=== PATIENT | female | born 2000 | race Caucasian/White ===

== ENCOUNTER → 2020-10-27 12:03 | Outpatient (CLI) | payer OTHER, SELFPAY ==
[2020-10-29 20:12] LABS: AFP, Serum 21.6 ng/mL (.); Calc Gestational Age EDD (.); Estriol, Free 1.02 ng/mL (.); Inhibin A, Dimeric 126.07 pg/mL (.); Inhibin A, MoM 0.68 (.); Maternal Ethnicity Caucasian (.); Maternal Weight 119 lbs (.); Number of Fetuses No (.); OSBR Risk 1 IN 10000 (.); Results Report (.); Test Results *Screen Negative* (.); hCG, MoM 1.01 (.); hCG, Serum 47782 mIU/mL (.)
== END ==
PROVIDERS: Referring Provider Family Medicine; Visit Provider Family Medicine
DX: Z34.90 Encounter for supervision of normal pregnancy, unspecified, unspecified trimester (principal); Z3A.16 16 weeks gestation of pregnancy
CPT/HCPCS: 36415; 82105; 82677; 84702; 86336

== ENCOUNTER → 2020-11-17 09:48 | Outpatient (CLI) | payer OTHER, SELFPAY ==
--- NOTE | 2020-11-17 09:49 | DI.US.S_ITS ---
PROCEDURE: US OB >= 14 WEEKS FETUS INDICATIONS: ANATOMY SCREENING OUTSIDE/PRIOR DATING DATA: Last menstrual period (LMP): 07/06/20. LMP-based estimated date of delivery (PRINCE): 04/12/21 First dating scan (date and location): 11/17/20 Estimated date of delivery (PRINCE) from first dating scan: 04/14/21 TECHNIQUE: Real-time scanning was performed of the fetus, with image documentation and biometric measurements. Endovaginal scanning: Not needed COMPARISON: None. FINDINGS: General: A single living intrauterine gestation is present. Presentation: Variable between breech and cephalic during the course of the study. Placenta: Placental position is anterior , without previa. Amniotic fluid index: 14.4 cm, normal range is 5-24 cm. heart rate: 145 beats per minute. Maternal cervical canal: 3.6 cm long. Normal lower limit is 2.5 cm. biometrics: Biparietal diameter: 4.1 cm, 18 weeks 2 days Head circumference: 15.9 cm, 18 weeks 5 days Abdominal circumference: 13.7 cm, 19 weeks 1 day Femur length: 3.0 cm, 19 weeks 2 days Estimated gestational age from initial scan: Not applicable Composite gestational age from present scan: 18 weeks 6 days Estimated weight and percentile: 275 g, 94th percentile Measurement variability for biometric dating: +/- 7 days from 14 weeks to 15 weeks 6 days gestation, +/- 10 days from 16 weeks to 21 weeks 6 days gestation, +/- 2 weeks from 22 weeks to 27 weeks 6 days gestation, +/- 3 weeks for 28 weeks gestation or later. weight reference: 4500 g or EFW >90/95% is considered macrosomia or large for gestational age. EFW <10% is small for gestational age. EFW 5% or less is considered intra-uterine growth restriction. Anatomic survey: Neuro: Ventricles are non-dilated at less than 10 mm. Cisterna magna is normal at 3-11 mm. Cerebellum is normal in size and morphology. Nuchal skin fold: Normal at less than 6 mm between 14-21 weeks gestational age. Face: Nose and lips, facial profile are normal. Spine: No evidence for spina bifida. Heart: 4-chambered heart is present, with normal ventricular outflow tracts. Diaphragm: Diaphragm is intact. Stomach: Left-sided stomach is present. Kidneys: No hydronephrosis. Normal is less than 5 mm in 2nd trimester, less than 7 mm in 3rd trimester. Cord: 3-vessel cord has orthotopic insertion. Bladder: Normal in size. Extremities: All 4 extremities identified. IMPRESSION: Appropriate interval growth from LMP, no anomaly seen. The delivery date is projected to be centered on 04/14/21. Over the course of this examination presentation varied from breech to vertex. Dictated by: Good Malcolm M.D. on 11/17/2020 at 14:41 Approved by: Good Malcolm M.D. on 11/17/2020 at 14:45
== END ==
PROVIDERS: Referring Provider Family Medicine; Visit Provider Family Medicine
DX: Z3A.18 18 weeks gestation of pregnancy; Z36.89 Encounter for other specified antenatal screening
CPT/HCPCS: 36415; 76811; 86850; 86900; 86901

== ENCOUNTER → 2021-01-15 10:35 | Outpatient (CLI) | payer OTHER, SELFPAY ==
[2021-01-15 11:58] LABS: Add Manual Diff / Slide Review NO; Basophils Absolute Auto 0 /uL (0-100); Basophils Percent Auto 0.3 % (0-2); Eosinophils Absolute Auto 100 /uL (0-450); Eosinophils Percent Auto 0.8 % (2-4); Hematocrit 31.8 % (36-46); Lymphocytes Absolute Auto 1500 /uL (1100-4500); Lymphocytes Percent Auto 15.5 % (25-40); Mean Corpuscular HGB Conc 34.8 % (30-36); Mean Corpuscular Hemoglobin 31.7 PG (26-34); Mean Corpuscular Volume 91.2 fL (80-100); Monocytes Absolute Auto 700 /uL (0-900); Monocytes Percent Auto 7.5 % (3-14); Neutrophils Absolute Auto 7300 /uL (1500-7000); Neutrophils Percent Auto 75.9 % (50-75); Platelet Count 237 X10^3/uL (150-400); Red Blood Cell Count 3.48 X10^6/uL (4.0-5.2); Red Cell Distribution Width 12.2 % (11.6-14.8); White Blood Cell Count 9.7 X10^3/uL (4.5-11.0)
[2021-01-15 12:21] LABS: GTT (PREG) 1 Hour PP 50gm Dose 109 mg/dL (76-139)
== END ==
PROVIDERS: Referring Provider Family Medicine; Visit Provider Family Medicine
DX: Z34.90 Encounter for supervision of normal pregnancy, unspecified, unspecified trimester (principal)
CPT/HCPCS: 36415; 82950; 85025

== ENCOUNTER → 2021-03-17 15:06 | Outpatient (CLI) | payer OTHER, SELFPAY ==
[2021-03-18 11:30] LABS: Strep Grp B PCR NEG for Grp B Strep
== END ==
PROVIDERS: Visit Provider Family Medicine
DX: Z34.03 Encounter for supervision of normal first pregnancy, third trimester (principal); Z3A.36 36 weeks gestation of pregnancy
CPT/HCPCS: 87653

== ENCOUNTER 2021-04-11 20:00 | Outpatient (CLI) | payer OTHER, SELFPAY ==
--- NOTE | 2021-04-11 21:12 | P.TNLD_ITS ---
Visit Information Visit Information Date of evaluation: 04/11/21 Primary OB Provider: Ailyn Castro On-call OB Provider: Lin Allen Reason for Evaluation: Yes rupture of membranes Comments/Additional reasons for admission: 20-year-old at 39 weeks and 6 days gestation with concern for rupture of membranes prior to arrival. She has not had ongoing leaking of fluid but is concerned about decreased movement as well. Denies painful contractions or bleeding. Vital Signs Vital Signs: Temperature 36.4? blood pressure 117/66 heart rate 82 PFSH Medical History Allergies (~2005) Anxiety (~2013) Asthma (~2005) Chronic eczema (~1999) Constipation (~2016) Depression (~2013) Electrocution (~2017) Fracture of forearm (~1999) Pneumonia (~2005) Seasonal allergies (~2005) Family History Mother Anemia Hypothyroid Hx of cholecystectomy Father Diverticulitis large intestine Grandmother Hyperlipidemia Grandfather Myocardial infarction Hypertension Breathing problem Grandmother Diabetes mellitus Grandfather Hypertension Hyperlipidemia Hx of CABG Sister Depression Anxiety Pre-eclampsia Gestational diabetes mellitus (GDM) affecting Polyhydramnios affecting delivery delivered Social History marital status: household members: spouse lives independently: Yes caregiver/support person: No housing: house pets and animals: Yes (1 dog, 1 cat: safe, aware of precautions. 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 ) Tobacco: How many years used: 2 quit status: has quit before second hand exposure: No ( still smokes but not in home or car. ) alcohol intake: former (Stopped a month before trying to conceive: maybe twice a month with friends. ) substance use type: marijuana (Formerly: stopped 1 month before trying to conceive.) during the past year weight has: remained stable well-balanced diet: daily or most days daily servings fruits/ve-4 caffeine: Yes (1 energy drink/daily. ) eating out: rarely or never Type(s) of exercise: walking frequency: 3-4 times per week duration: < 15 minutes/day Evaluation Evaluation Baseline heart rate: 120 Variability: Moderate (11-25) monitor accelerations: Present Monitor Decelerations: Absent Contraction Frequency (minutes): 8 Category of Tracing: Reactive Non-invasive Membranes Rupture Test: negative Diagnosis, Plan/Disposition Final Diagnosis (1) 39 weeks gestation of : Status: Acute Plan/Disposition Plan: NST reactive. AmniSure negative. Patient was katey regularly on the monitor however denied pain. She was reassured that she was not ruptured and was feeling her may be move well in the center. She will follow-up with Dr. Castro in clinic tomorrow. OB Disposition: home
== END 2021-04-11 21:34 | disposition home or self-care (01) ==
LOC: OB 04-13 07:45
PROVIDERS: Referring Provider Family Medicine; Visit Provider Family Medicine
DX: Z03.71 Encounter for suspected problem with amniotic cavity and membrane ruled out (principal); O36.8130 Decreased fetal movements, third trimester, not applicable or unspecified; Z3A.39 39 weeks gestation of pregnancy
CPT/HCPCS: 59025; 59050; 84112; G0378; G0379

== ENCOUNTER 2021-04-16 08:07 | Observation (INO) | payer OTHER, SELFPAY | END 2021-04-16 09:15 | disposition home or self-care (01) | PROVIDERS: Admitting Provider Obstetrics & Gynecology; PCP Family Medicine; Referring Provider Obstetrics & Gynecology; Visit Provider Obstetrics & Gynecology | DX: O48.0 Post-term pregnancy (principal); Z3A.40 40 weeks gestation of pregnancy | CPT/HCPCS: 59025; G0378; G0379 ==

== ENCOUNTER 2021-04-16 15:38 | Observation (INO) | payer OTHER, SELFPAY ==
[2021-04-16] MEDS: hydrOXYzine 50 MG/ML INJ IM (16:33)
[2021-04-16] MEDS: MORPHINE 10 MG/ML INJ IM (16:34)
== END 2021-04-16 19:41 | disposition home or self-care (01) ==
PROVIDERS: Admitting Provider Family Medicine; PCP Family Medicine; Referring Provider Family Medicine; Visit Provider Family Medicine
DX: O48.0 Post-term pregnancy (principal); Z3A.40 40 weeks gestation of pregnancy
CPT/HCPCS: 59025; G0378; G0379; J2270; J3410

== ENCOUNTER 2021-04-17 05:36 | Inpatient (IN) | payer OTHER, SELFPAY ==
[2021-04-17 06:20] LABS: Add Manual Diff / Slide Review NO; Basophils Absolute Auto 0 /uL (0-100); Basophils Percent Auto 0.3 % (0-2); Eosinophils Absolute Auto 0 /uL (0-450); Eosinophils Percent Auto 0.3 % (2-4); Hemoglobin 12.3 g/dL (12.0-16.0); Lymphocytes Absolute Auto 1500 /uL (1100-4500); Lymphocytes Percent Auto 13.3 % (25-40); Mean Corpuscular Hemoglobin 30.2 PG (26-34); Monocytes Absolute Auto 700 /uL (0-900); Monocytes Percent Auto 6.3 % (3-14); Neutrophils Absolute Auto 8900 /uL (1500-7000); Neutrophils Percent Auto 79.8 % (50-75); Platelet Count 182 X10^3/uL (150-400); Red Blood Cell Count 4.05 X10^6/uL (4.0-5.2); Red Cell Distribution Width 13.1 % (11.6-14.8); White Blood Cell Count 11.1 X10^3/uL (4.5-11.0)
[2021-04-17 06:26] VITALS: BP 121/77
[2021-04-17 06:51] LABS: COVID19 - ADMIT (NP swab/PCR) Negative (Negative)
[2021-04-17] MEDS: CALCIUM CARBONATE 500 MG TAB 1000 MG PO (07:15)
--- NOTE | 2021-04-17 08:14 | P.HPOB_ITS ---
OB HPI Date/Time Date of admission: 04/17/21 Date Patient Seen: 04/17/21 Time Patient Seen: 08:14 History of Present Condition Chief complaint: contractions Date of Last Menstrual Period: 07/06/20 PRINCE Calculator Estimated Delivery Date Method Current WG Current Estimate 04/12/21 Manual 40w 5d Final PRINCE - GI Other Estimates 04/12/21 LMP (Certain) 40w 5d 04/13/21 Ultrasound #1 40w 4d Estimated Gestational Age (weeks): 40 5/7 : 1 Para: 0 Narrative: Primip seen twice yesterday for ctx. Slept some after sent home with morphine/hydroxyzine. This morning ctx became stronger and closer together. On presentation cervix had changed to 3 cm from 1 1/2 cm yesterday. Memranes intact Dating criteria OB: LMP confirmed by 2nd trimester US Ultrasounds: normal mid trimester US Obstetrical complications: none Medical complications OB: none Preadmission Labs Last OB Lab Results: Blood Type O Positive 11/17/20 11:27 11/17/20 Antibody Screen Negative 11/17/20 11:27 11/17/20 Hematocrit 36.0 % (36-46) 04/17/21 06:00 04/17/21 Hemoglobin 12.3 g/dL (12.0-16.0) 04/17/21 06:00 04/17/21 Glucose 1 Hour 109 mg/dL (76-139) 01/15/21 11:49 01/15/21 Group B Streptococcus (PCR) Neg for grp b strep 03/17/21 15:06 03/17/21 -: Chlamydia screen: negative and Gonorrhea screen: negative External Labs -: GBS status: negative -: Rubella: immune Evaluation Evaluation Baseline heart rate: 150 Contraction Frequency (minutes): 5 Category of Tracing: Reactive Status: Category l Dilation (cm): 3 Effacement (%): 60 station: -1 [facility] Medical History Allergies (~2005) Anxiety (~2013) Asthma (~2005) Chronic eczema (~1999) Constipation (~2016) Depression (~2013) Electrocution (~2017) Fracture of forearm (~1999) Pneumonia (~2005) Seasonal allergies (~2005) Family History Mother Anemia Hypothyroid Hx of cholecystectomy Father Diverticulitis large intestine Grandmother Hyperlipidemia Grandfather Myocardial infarction Hypertension Breathing problem Grandmother Diabetes mellitus Grandfather Hypertension Hyperlipidemia Hx of CABG Sister Depression Anxiety Pre-eclampsia Gestational diabetes mellitus (GDM) affecting Polyhydramnios affecting delivery delivered Social History marital status: household members: spouse lives independently: Yes caregiver/support person: No housing: house pets and animals: Yes (1 dog, 1 cat: safe, aware of precautions. 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 ) alcohol intake: former (Stopped a month before trying to conceive: maybe twice a month with friends. ) substance use type: marijuana (Formerly: stopped 1 month before trying to conceive.) during the past year weight has: remained stable well-balanced diet: daily or most days daily servings fruits/ve-4 caffeine: Yes (1 energy drink/daily. ) eating out: rarely or never Type(s) of exercise: walking frequency: 3-4 times per week duration: < 15 minutes/day Meds Home Medications and Allergies Home Medications Medication Instructions Recorded Confirmed Type prenat.vits,viktoriya,[id number] 1 tab PO DAILY 08/27/20 04/17/21 History breast pump #1 ea 01/15/21 04/17/21 Rx Allergies Allergy/AdvReac Type Severity Reaction Status Date / Time azithromycin Allergy Mild Itchy, Verified 03/17/21 14:48 hives, skin swelling. lactose Allergy Mild GI upset Verified 03/17/21 14:48 latex Allergy Mild Redness/margaret Verified 03/17/21 14:48 h Review of Systems Psychiatric Comments: anxiety / depression - no meds currently Allergic/Immunologic Comments: asthma - mild, inhaler prn; eczema OB Exam Narrative Exam Narrative: sitting up on bed, comfortable and talking easily between contractions HENMT Head: normocephalic and atraumatic Resp Other: normal effort Cardio Rate: regular rate Extremities Lower extremity: Yes normal to inspection Presentation: vertex Estimated Weight (lbs): 7 Objective Labs Result Diagrams: 04/17/21 06:00 Labs: Laboratory Results - last 24 hr 04/17/21 04/17/21 06:00 06:00 WBC 11.1 H RBC 4.05 Hgb 12.3 Hct 36.0 MCV 89.0 MCH 30.2 MCHC 34.0 RDW 13.1 Plt Count 182 Neut % (Auto) 79.8 H Lymph % (Auto) 13.3 L Ballard % (Auto) 6.3 Eos % (Auto) 0.3 L Baso % (Auto) 0.3 Neut # (Auto) 8900 H Lymph # (Auto) 1500 Ballard # (Auto) 700 Eos # (Auto) 0 Baso # (Auto) 0 SARS-CoV-2 (PCR) Negative Assessment and Plan Assessment and Plan Assessment and Plan narrative: Spontaneous labor at 40 5/7 weeks Latent phase GBS and Covid negative Tracing reassuring Desires to deliver without epidural - currently trying nitrous Membranes intact Anticpate Time Spent with Patient Total time spent with greater than 50% in coordination of care (as documented) at patient's floor/unit and/or counseling patient:: Greater than 35 minutes
--- NOTE | 2021-04-17 10:08 | PM.OBPNLAB ---
Date/Time Date Patient Seen: 04/17/21 Time Patient Seen: 10:09 Pain Control Pain control: tolerating well Comments: has used nitrous and then shower Pelvic Exam Effacement (%): 60 station: -1 Comments: declined Contractions Contraction pattern: Regular (q 3 min) Contraction intensity: Strong/Firm Status status: Category l Assessment and Plan Assessment: other (spontaneous labor - latent phase at last exam, tracing when last on monitor was reassuring) Plan: continuous present management
[2021-04-17] MEDS: LACTATED RINGERS 1,000 ML 100 ML IV ×2 (11:05→14:46)
[2021-04-17] MEDS: fentaNYL 100 MCG/2 ML INJ (11:10)
--- NOTE | 2021-04-17 13:07 | PM.OBPNLAB ---
Date/Time Date Patient Seen: 04/17/21 Time Patient Seen: 13:10 Pain Control Pain control: epidural (has been sleeping intermittently) Pelvic Exam Dilation (cm): 8 (per RN at 1145) Effacement (%): 100 (per RN at 1145) station: -1 Amniotic membrane status: Intact Contractions Contraction frequency (min): 3 Contraction pattern: Regular (q 3 min) Contraction intensity: Strong/Firm Status status: Category l Heart Rate Baseline: 145 Monitor Decelerations: Variable (small) Monitor Variability: Moderate Assessment and Plan Assessment: active labor and other (Pt offered AROM but preferred to wait. Tracing reassuring.) Plan: continuous present management (AROM at 1500 if not complete or sooner if complete and ready to push)
[2021-04-17] MEDS: FENT 2MCG/ML BUPIV 0.125% EPI 200 MCG/100 ML PLAST..BAG 10 MCG EPIDURAL (14:46)
--- NOTE | 2021-04-17 15:07 | PM.OBPNLAB ---
Date/Time Date Patient Seen: 04/17/21 Time Patient Seen: 15:07 Pain Control Pain control: epidural (working well) Comments: AF/ BP wnl Pelvic Exam Dilation (cm): 8 Effacement (%): 95 (per RN at 1145) station: -1 Amniotic membrane status: Ruptured (AROM - clear) Contractions Monitor mode: External Contraction frequency (min): 3 Contraction pattern: Regular (q 3 min) Contraction intensity: Strong/Firm Status status: Category l Heart Rate Baseline: 140 Monitor Accelerations: Present Monitor Decelerations: Variable (small) Monitor Variability: Moderate Assessment and Plan Assessment: active labor (minimal progress since last check; expect AROM to help; tracing reassuring) Plan: continuous present management
[2021-04-17] MEDS: FENT 2MCG/ML BUPIV 0.125% EPI 200 MCG/100 ML PLAST..BAG 12 MCG EPIDURAL (17:10)
--- NOTE | 2021-04-17 17:56 | PM.OBPNLAB ---
Date/Time Date Patient Seen: 04/17/21 Time Patient Seen: 17:50 Pain Control Pain control: epidural Pelvic Exam Dilation (cm): 9.5 Effacement (%): 100 (per RN at 1145) station: +1 (BLAIRE) Amniotic membrane status: Ruptured (AROM - clear) Contractions Monitor mode: External Contraction frequency (min): 2 Contraction pattern: Regular (q 3 min) Contraction intensity: Strong/Firm Status status: Category l Assessment and Plan Assessment: active labor (good progress and positioning) and other (tracing reassuring) Comments: trial push failed to keep cervix reduced - will labor down - anticipate another pushing trial in 30-60 minutes Anticipate
--- NOTE | 2021-04-17 19:52 | PM.OBPRVD ---
Labor & Delivery Delivery date: 04/17/21 Intrapartal Events: None Cervical ripening method: none Induction method: none Delivery augmentation: rupture of membranes Delivery monitor: external FHT and external uterine Route of delivery: L&D Laceration Description: Perineal - 2nd Degree (small) Delivery repair: vicryl Estimated blood loss (mL): 350 Anesthesia Type: Epidural Narrative: 20 yo G1 now P1 at 40 5/7 weeks presented in spontaneous labor at 3 cm. She used nitrous. Then got an epidural in the active phase. She had a short second stage, delivering a vigorous female OA over second degree tear. A loose nuchal cord was reduced on the perineum. A left nuchal arm was present. Baby was placed on mom's chest for drying and stimulation. Long thin 3VC clamped after a delay - FOB cut. Apgars 9/9. Cord blood was collected. Placenta removed intact by gentle manual extraction after the cord was partially disrupted. There were trailing membranes. Repair was done with 3-0 Vicryl. EBL 350 cc. Parents happy to see Alisa Hale. Plan for aftercare: Routine care
[2021-04-17] MEDS: ACETAMINOPHEN 325 MG TABLET 650 MG PO (20:44)
[2021-04-17] MEDS: IBUPROFEN 600 MG TABLET PO (20:45)
[2021-04-18] MEDS: IBUPROFEN 600 MG TABLET PO ×4 (02:48→21:38)
[2021-04-18] MEDS: ACETAMINOPHEN 325 MG TABLET 650 MG PO ×4 (02:48→21:37)
[2021-04-18 06:41] LABS: Hematocrit 30.3 % (36-46); Hemoglobin 10.4 g/dL (12.0-16.0)
[2021-04-18] MEDS: PRENATAL VIT,CALC/IRON/FOLIC 1 TABLET 1 TAB PO (08:19)
[2021-04-18] MEDS: DOCUSATE 100 MG CAPSULE PO (08:19)
--- NOTE | 2021-04-18 10:00 | PM.OBPN.1 ---
Subjective - OB Subjective Patient comments: other (two episodes of near syncope - one while in shower) [place] baby status: doing well [place] feeding status: exclusively breast feeding Date Patient Seen: 04/18/21 Time Patient Seen: 10:01 Interval history: s/p last evening Exam Vital Signs (past 8 hours): AF/VSS Narrative Exam Narrative: FF/LL/uterus at umbilicu Const General: comfortable Orientation: alert and awake Objective Labs Result Diagrams: 04/18/21 06:28 Labs: Laboratory Results - last 24 hr 04/18/21 06:28 Hgb 10.4 L Hct 30.3 L Assessment & Plan Plan day: 1 plan OB: routine care Comments: O pos, rubella non-immune - plan MMR Breast feeding Anticipate DC tomorrow Time Spent With Patient Time: Total time spent is greater than 50% in coordination of care (as documented) at patient's floor/unit and/or counseling patient: Time with patient: less than 15 minutes
--- NOTE | 2021-04-18 10:08 | P.DS_ITS ---
History of Present Illness History of Present Illness Date Patient Seen: 04/19/21 Time Patient Seen: 07:11 Chief complaint: contractions Narrative: s/p 04/17 at 40 5/7 weeks, spontaneous labor. Uncomplicated . Presented at 3 cm with regular, painful ctx. Epidural in active phase. AROM at 8 cm. Short second stage. Discharge Providers Provider Date of admission: 04/17/21 19:26 Discharge Date: 04/19/21 Primary care physician: Ailyn Castro MD Consults: 04/18/21 19:46 Consult to Well Service Floor Worker Routine Comment: 04/18/21 20:08 Consult to Well Service Floor Worker Routine Comment: Discharge provider: Kat Lopez MD Summary Hospital Course Discharge Diagnosis: s/p Hospital Course: Pt began successfully. She had two episodes of near syncope - one was in the shower. H/H - 03/04. She remained afebrile. VSS. Lochia light. Status at Discharge Cognitive/behavioral status at discharge: at baseline, oriented and calm Functional status at discharge: independent ambulation Overall status at discharge: patient is back to baseline Time Spent with Patient Time spent: Less than 30 minutes Exam Vital Signs (past 8 hours): AF/VSS Narrative Exam Narrative: FF below U, extremities without edema Const General: healthy appearing Objective Labs Result Diagrams: 04/18/21 06:28 Labs: Laboratory Results - last 24 hr 04/18/21 06:28 Hgb 10.4 L Hct 30.3 L PFSH Medical History Allergies (~2005) Anxiety (~2013) Asthma (~2005) Chronic eczema (~1999) Constipation (~2017) Depression (~2013) Electrocution (~2018) Fracture of forearm (~1999) Pneumonia (~2005) Seasonal allergies (~2005) Family History Mother Anemia Hypothyroid Hx of cholecystectomy Father Diverticulitis large intestine Grandmother Hyperlipidemia Grandfather Myocardial infarction Hypertension Breathing problem Grandmother Diabetes mellitus Grandfather Hypertension Hyperlipidemia Hx of CABG Sister Depression Anxiety Pre-eclampsia Gestational diabetes mellitus (GDM) affecting Polyhydramnios affecting delivery delivered Social History marital status: household members: spouse lives independently: Yes caregiver/support person: No housing: house pets and animals: Yes (1 dog, 1 cat: safe, aware of precautions. 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 ) alcohol intake: former (Stopped a month before trying to conceive: maybe twice a month with friends. ) substance use type: marijuana (Formerly: stopped 1 month before trying to conceive.) during the past year weight has: remained stable well-balanced diet: daily or most days daily servings fruits/ve-4 caffeine: Yes (1 energy drink/daily. ) eating out: rarely or never Type(s) of exercise: walking frequency: 3-4 times per week duration: < 15 minutes/day Discharge Assessment & Plan Assessment and Plan Assessment: stable post on 04/17 plans POP for contraception Discharge Plan Discharge Plan Patient Disposition: Home Discharge orders & Medications Prescriptions: Continued (DME) breast pump Device See Rx Instructions .ROUTE .MEDSUPPLY Qty: 1 RF: 0 prenat.vits,viktoriya,[id number] Tablet 1 tab PO DAILY RF: 0 Follow up/Referrals: Ailyn Castro MD [Primary Care Provider] - Discharge Data Primary Care Provider: Ailyn Castro
[2021-04-18] MEDS: LANOLIN OINT 7 GM 1 APPLIC TOP (21:37)
[2021-04-19] MEDS: ACETAMINOPHEN 325 MG TABLET 650 MG PO (08:01)
[2021-04-19] MEDS: IBUPROFEN 600 MG TABLET PO (08:02)
[2021-04-19] MEDS: PRENATAL VIT,CALC/IRON/FOLIC 1 TABLET 1 TAB PO (08:03)
[2021-04-19] MEDS: DOCUSATE 100 MG CAPSULE PO (08:03)
[2021-04-19] MEDS: DERMOPLAST SPRAY 20% 60 ML 1 SPRAY TOP (08:04)
[2021-04-19 09:42] VITALS: BP 104/65; PULSE 82; RESP 16; TEMP 36.5
[2021-04-19] MEDS: MEASLES,MUMPS,RUBELLA VACC/PF 0.5 ML VIAL SUBCUT (11:56)
== END 2021-04-19 12:30 | disposition home or self-care (01) | DRG 807 ==
PROVIDERS: Admitting Provider Obstetrics & Gynecology; PCP Family Medicine; Referring Provider Obstetrics & Gynecology; Visit Provider Obstetrics & Gynecology
DX: O70.1 Second degree perineal laceration during delivery (principal); Z37.0 Single live birth; Z3A.40 40 weeks gestation of pregnancy; O99.52 Diseases of the respiratory system complicating childbirth; J45.909 Unspecified asthma, uncomplicated; Z20.822 Contact with and (suspected) exposure to COVID-19; O69.81X0 Labor and delivery complicated by cord around neck, without compression, not applicable or unspecified
CPT/HCPCS: 01967; 36415; 59050; 85014; 85018; 85025; 86850; 86900; 86901; 87635; C9803; G0378; G0379; J3010

== ENCOUNTER → 2024-04-26 17:39 | Outpatient (CLI) | payer OTHER, SELFPAY | PROVIDERS: PCP Family Medicine; Visit Provider Nurse Practitioner Family | DX: R30.0 Dysuria (principal) | CPT/HCPCS: 87086 ==